=== PATIENT | male | born 1955 | race Caucasian/White ===

== ENCOUNTER 2018-06-13 12:11 | Outpatient (CLI) | payer OTHER ==
--- NOTE | 2018-06-13 14:06 | ULT ---
CAROTID DUPLEX ULTRASOUND INCLUDING COLOR AND SPECTRAL DOPPLER IMAGING: HISTORY: A 63-year-old male with a history of carotid bruit. FINDINGS: There is fairly extensive scattered plaque in the distal CCA and proximal ICAs bilaterally. PSV right ICA 393 cm/s. EDV 66 cm/s. ICA/CCA ratio 3.8. PSV left ICA 128 cm/s. EDV 41 cm/s. ICA/CCA ratio 1.7. IMPRESSION: 1. Severe, greater than 70% stenosis of the right internal carotid artery. 2. Moderate 50-59% stenosis of the left internal carotid artery. Antegrade vertebral flow. 3. Extensive arteriovascular plaque, evidence for carotid artery vascular disease. 4. Consider followup CT angiogram for further assessment. POS: DARIAN
== END 2018-06-13 12:12 | disposition home or self-care (01) ==
LOC: BICULT 12:11
PROVIDERS: ATTEND Specialist
DX: R09.89 Other specified symptoms and signs involving the circulatory and respiratory systems (principal); I65.23 Occlusion and stenosis of bilateral carotid arteries
CPT/HCPCS: 93880

== ENCOUNTER 2018-06-29 08:56 | Outpatient (CLI) | payer OTHER ==
[2018-06-29] MEDS ORDERED: ISOVUE-370 76%-LOCM 1 ML ONE (10:36)
--- NOTE | 2018-06-29 19:36 | CT ---
CT ANGIO NECK WITH CONTRAST: INDICATIONS: Carotid stenosis. Recent carotid Doppler study, 06/13/2018, revealed significant stenosis in the rig ht internal carotid artery. There was also evidence of stenosis in the left internal carotid artery. TECHNIQUE: Multiple axial tomograms were obtained through the neck with IV enhancement, following angio protocol , with multiplanar reconstruction and 3D post processing. FINDINGS: There is a common origin of the innominate artery in the left common carotid, at the arch. No stenos is at the arch. The left common carotid is patent with mild atherosclerotic change. There is atherosclerotic change with calcification in the left bulb and left proximal ICA; however, t here is no evidence of significant stenosis. The left ICA is tortuous and this tortuosity may explai n the high velocities recorded on the Doppler study. The right common carotid artery shows mild atherosclerotic change but no stenosis. There is calcified plaque at the right bulb and the proximal right ICA. There is a focus of high-gra de stenosis in the proximal right ICA, just beyond its origin. This degree of stenosis here is estim ated at 80% to 90% in diameter by NASCET criteria. The right ICA above this focal stenosis is tortuous but patent. The vertebral arteries are patent and symmetric. The soft tissues show an asymmetrically atrophied right submandibular gland, of uncertain significanc e. Recommend clinical correlation. IMPRESSION: High-grade stenosis in the proximal right internal carotid artery, as noted above. POS: DARIAN
== END 2018-06-29 08:57 | disposition home or self-care (01) ==
LOC: BICCT 08:56
PROVIDERS: ATTEND Specialist
DX: I65.21 Occlusion and stenosis of right carotid artery (principal)
CPT/HCPCS: 70498

== ENCOUNTER 2018-08-10 07:59 | Outpatient (CLI) | payer OTHER ==
[2018-08-10 08:40] LABS: #Eosinphils 0.2 thou/uL (0.0-0.7); #Lymphocytes 1.6 thou/uL (1.20-3.40); #Monocytes 0.7 thou/uL (0.11-0.59); #Neutrophils 6.1 thou/uL (1.40-6.50); %Basophils 0.3 % (0.0-1.0); %Eosinophils 2.3 % (0.0-10.0); %Lymphocytes 18.4 % (21.0-51.0); %Monocytes 7.6 % (0.0-10.0); %Neutrophils 71.4 % (42.0-75.0); Hemoglobin 15.2 g/dL (14.0-18.0); Mean Corpuscular HGB CONC 34.3 g/dL (32.0-36.0); Mean Corpuscular Hemoglobin 32.8 pg (27.0-31.0); Mean Corpuscular Volume 95.7 fL (78.0-98.0); Mean Platelet Volume 7.7 fL (7.4-10.4); Platelet Count 153 thou/uL (130-400); RBC Distribution Width 13.3 % (11.5-14.5); Red Blood Cell (RBC) Count 4.62 mill/uL (4.70-6.10); White Blood Cell (WBC) Count 8.5 thou/uL (4.8-10.8)
[2018-08-10 08:57] LABS: ALT (SGPT) 11 U/L (8-55); AST (SGOT) 15 U/L (5-34); Albumin 3.7 g/dL (3.4-4.8); Alkaline Phosphatase 98 U/L (40-150); Anion Gap 11 mmol/L (10-20); BUN (Urea Nitrogen) 13 mg/dL (8.4-25.7); Bilirubin, Direct 0.6 mg/dL (0.1-0.3); Bilirubin, Total 1.2 mg/dL (0.2-1.2); Calc. Creatinine Clearance 0 mL/min (70-130); Calcium 9.2 mg/dL (7.8-10.44); Carbon Dioxide 27 mmol/L (23-31); Cardiac Risk 2.5 (Less than 4.5); Chloride 106 mmol/L (98-107); Cholesterol 107 mg/dl (< 200 Desired); Estimated GFR-MDRD 74; Globulin 3.3 g/dL (2.4-3.5); Glucose 141 mg/dL (80-115); HDL Cholesterol 42 mg/dL (>60 Neg Risk); LDL Cholesterol, Calculated 54 mg/dL; Potassium 3.4 mmol/L (3.5-5.1); Sodium 141 mmol/L (136-145); Triglycerides 54 mg/dL (Less than 150)
== END 2018-08-10 08:00 | disposition home or self-care (01) ==
LOC: LABBT 07:59
PROVIDERS: ATTEND Internal Medicine Cardiovascular Disease
DX: Z01.812 Encounter for preprocedural laboratory examination (principal)
CPT/HCPCS: 80053; 80061; 80076; 85025

== ENCOUNTER 2018-08-16 06:01 | Observation (INO) | payer OTHER ==
[2018-08-16] MEDS ORDERED: Heparin 10,000 UNITS/1 ML VIAL ONE (06:31)
[2018-08-16] MEDS ORDERED: Midazolam HCl 2 mg/2 ml Vial ONE (06:59)
[2018-08-16] MEDS ORDERED: Fentanyl 100 MCG/2 ML VIAL ONE (07:00)
[2018-08-16] MEDS ORDERED: Clopidogrel Bisulfate 300 MG TAB ONE (07:37)
[2018-08-16] MEDS ORDERED: Bivalirudin 250 MG VIAL ONE (07:37)
[2018-08-16] MEDS ORDERED: Nitroglycerin 100MG/250ML BOT 250 ML ONE (07:38)
[2018-08-16] MEDS ORDERED: Sodium Chloride 0.9% 1,000 ML IV SCH (08:15)
[2018-08-16] MEDS ORDERED: Doxycycline 100 MG CAP PO SCH (09:00)
[2018-08-16] MEDS ORDERED: Iopamidol 370 76% 100 ML VIAL ONE (09:36)
[2018-08-16] MEDS ORDERED: Iopamidol 370 76% 50 ML VIAL FS ONE (09:36)
[2018-08-16] MEDS ORDERED: Albuterol Sulfate 1.25 MG/3 ML NEB ONE (09:42)
[2018-08-16] MEDS ORDERED: Doxycycline Monohydrate 25 MG/5 ML PO SCH (10:00)
[2018-08-16] MEDS: Allopurinol 100 MG TAB PO SCH (10:27)
[2018-08-16] MEDS: Clopidogrel Bisulfate 75 MG TAB PO SCH (10:27)
[2018-08-16] MEDS: Digoxin 0.25 MG TAB PO SCH (10:28)
[2018-08-16] MEDS: Furosemide 20 MG TAB PO SCH ×2 (10:30→18:25)
[2018-08-16] MEDS: hydrALAZINE 25 MG TAB PO SCH ×2 (10:30→20:15)
[2018-08-16] MEDS: Lisinopril 20 MG TAB PO SCH ×2 (10:31→20:15)
[2018-08-16] MEDS ORDERED: Sodium Chloride 0.9% 10 ML ONE (11:40)
--- NOTE | 2018-08-16 14:15 | CCL ---
CARDIAC CATHETERIZATION REPORT: Date: 08/16/18 PROCEDURE: Left heart catheterization, selective arteriography, left ventriculography, bypass graft angiography, VAIL injection, intracoronary nitroglycerin, and bare metal stent placement in the second obtuse marginal distal to the graft insertion. INDICATION: Abnormal nuclear scan for preoperative evaluation. DESCRIPTION OF PROCEDURE: The patient was brought to the cardiac photographic laboratory technician and the right groin was prepped and draped in the usual fashion. 1% lidocaine was infiltrated. A 6 Burkinan sheath was placed into the right femoral artery and heparin 3,000 units given. A 6 Burkinan angulated pigtail was inserted and pressures were obtained. Left ventriculogram was performed using 30 mL of contrast at 12 mL/s in a MCKOY 30 degree projection. Pressures were obtained and the pigtail was removed over an exchange wire for a 6 Burkinan Nayeli left-4. Left coronary artery arteriography was performed and this was removed over an exchange wire for a Nayeli right-4 catheter. Right coronary arteriography and bypass graft angiography, as well as VAIL injection was performed. The right-4 diagnostic catheter was then removed over a wire and a 6 Burkinan right-4 guide catheter was inserted. Floppy Choice wire was advanced into the obtuse marginal graft distal to the lesion in the [place] vessel. Rebel 2.5 x 12 mm stent was then inserted; however, the guide would not provide adequate backup to allow opacification of the graft to document the location of the stent. The balloon, wire, and guide catheter were removed. The guide catheter was removed over an exchange wire for a 6 [place]kinan Amplatz left-1 guide catheter. The floppy Choice wire was then reinserted into the obtuse marginal graft distal to the lesion. Rebel 2.5 x 12 mm stent was then positioned and deployed. Intracoronary nitroglycerin 200 mcg was given earlier in the case. Also during the case, Angiomax bolus and drip were given, and Plavix 600 mg PO. There was excellent result and the guide catheter and balloon wire were removed. The sheath was sutured in place. The patient was transferred to the PCU. RESULTS: PRESSURES: Aorta 141/65, mean of 95 Left Ventricle 136/12 LEFT VENTRICULOGRAM: There was normal left ventricular contractility with ejection fraction of 50-55% . There was moderate mitral regurgitation. CORONARY ARTERIOGRAPHY: 1. The left main was normal. 2. The LAD had a 50% proximal stenosis and a 50% mid stenosis. 3. The circumflex was totally occluded in its mid portion, which was the site of previous stent placement in 2010. The superior branch of the second obtuse marginal filled retrograde from the left. 4. The ramus had an 80% stenosis. 5. The right coronary artery was diffusely diseased with 70% proximal stenosis , 80%, and 99% mid stenosis, and total occlusion distally. BYPASS GRAFTS: 1. The VAIL to the LAD was patent. 2. The second obtuse marginal graft was patent. There was an 80% lesion in [place] vessel distal to the graft insertion. 3. The ramus graft was patent. This was piggybacked on to the obtuse marginal graft. 4. The right posterior descending graft was patent. INTERVENTION RESULTS: The initial lesion in the second obtuse marginal distal to the graft insertion was 80%; final lesion was 0%. IMPRESSION: 1. Three vessel coronary artery disease. 2. Four of four bypass grafts patent. 3. Normal left ventricular function. 4. Moderate mitral regurgitation. 5. Successful bare metal stent in second obtuse marginal distal to the graft insertion. [facility]
[2018-08-16 15:27] VITALS: BMI 32.8
[2018-08-16] MEDS: Carvedilol 25 MG TAB PO SCH (18:20)
[2018-08-16] MEDS ORDERED: Atorvastatin Calcium 40 MG TAB PO SCH (21:00)
[2018-08-17 05:42] LABS: #Eosinphils 0.2 thou/uL (0.0-0.7); #Lymphocytes 1.7 thou/uL (1.20-3.40); #Monocytes 0.8 thou/uL (0.11-0.59); #Neutrophils 5.2 thou/uL (1.40-6.50); %Basophils 0.3 % (0.0-1.0); %Eosinophils 2.4 % (0.0-10.0); %Lymphocytes 21.5 % (21.0-51.0); %Monocytes 9.8 % (0.0-10.0); Hemoglobin 13.5 g/dL (14.0-18.0); Mean Corpuscular HGB CONC 33.8 g/dL (32.0-36.0); Mean Corpuscular Hemoglobin 32.5 pg (27.0-31.0); Mean Corpuscular Volume 96.3 fL (78.0-98.0); Mean Platelet Volume 8.1 fL (7.4-10.4); Platelet Count 125 thou/uL (130-400); RBC Distribution Width 13.6 % (11.5-14.5); Red Blood Cell (RBC) Count 4.15 mill/uL (4.70-6.10); White Blood Cell (WBC) Count 7.8 thou/uL (4.8-10.8)
[2018-08-17 05:59] LABS: Digoxin 0.46 ng/mL (0.8-2.0)
[2018-08-17 06:00] LABS: ALT (SGPT) 11 U/L (8-55); AST (SGOT) 17 U/L (5-34); Albumin 3.5 g/dL (3.4-4.8); Alkaline Phosphatase 84 U/L (40-150); Anion Gap 12 mmol/L (10-20); BUN (Urea Nitrogen) 15 mg/dL (8.4-25.7); Bilirubin, Total 1.2 mg/dL (0.2-1.2); Calc. Creatinine Clearance 128 mL/min (70-130); Calcium 8.9 mg/dL (7.8-10.44); Carbon Dioxide 23 mmol/L (23-31); Chloride 105 mmol/L (98-107); Estimated GFR-MDRD 79; Globulin 2.9 g/dL (2.4-3.5); Glucose 154 mg/dL (80-115); Potassium 3.5 mmol/L (3.5-5.1); Protein, Total 6.4 g/dL (5.8-8.1); Sodium 136 mmol/L (136-145)
[2018-08-17] MEDS: Allopurinol 100 MG TAB PO SCH (07:57)
[2018-08-17] MEDS: Clopidogrel Bisulfate 75 MG TAB PO SCH (07:59)
[2018-08-17] MEDS: Digoxin 0.25 MG TAB PO SCH (07:59)
[2018-08-17] MEDS: Furosemide 20 MG TAB PO SCH (07:59)
[2018-08-17] MEDS: hydrALAZINE 25 MG TAB PO SCH (08:00)
[2018-08-17] MEDS: Carvedilol 25 MG TAB PO SCH (08:00)
[2018-08-17] MEDS: Lisinopril 20 MG TAB PO SCH (08:00)
[2018-08-17] MEDS ORDERED: Potassium Chloride 10 MEQ TAB PO SCH (08:00)
[2018-08-17] MEDS ORDERED: Doxycycline Monohydrate 25 MG/5 ML PO SCH (09:00)
[2018-08-17 15:36] VITALS: BP 150/82; TEMP 97.5
--- NOTE | 2018-08-18 04:12 | DIS ---
DATE OF ADMISSION: 08/16/2018 DATE OF DISCHARGE: 08/17/2018 DISCHARGE DIAGNOSES: 1. Proximal to distal inferior and proximal lateral wall ischemia on cardiac PET scan. 2. Placement of bare metal stent in the obtuse marginal distal to the graft insertion. 3. Status post coronary artery bypass graft with four of four grafts patent at this time. 4. Moderate mitral regurgitation. 5. Severe right internal carotid artery stenosis, for carotid endarterectomy in the near future. 6. Chronic atrial fibrillation. 7. History of ETOH abuse. 8. Hypertension. 9. Hypercholesterolemia under good control. 10. Chronic obstructive pulmonary disease. 11. Smoker of 15 cigarettes per day. 12. History of CVA. DISCHARGE MEDICATIONS: 1. Plavix 75 mg q.a.m. x1 month and then discontinue. 2. Allopurinol 100 q.a.m. 3. Aspirin 81 q.a.m. 4. Atorvastatin 40 mg q.a.m. 5. Carvedilol 25 mg b.i.d. 6. Digoxin 0.375 mg daily. 7. Doxycycline 40 mg q.a.m. 8. Furosemide 40 mg b.i.d. 9. Hydralazine 50 mg b.i.d. 10. Lisinopril 20 mg b.i.d. 11. KCl 10 mEq q.a.m. 12. He will resume Xarelto on the day after discharge. DISCHARGE DISPOSITION: The patient will be seen in 6 months with fast lipid profile and comprehensive metabolic panel. He will contact Dr. Ramos regarding timing of his carotid endarterectomy. HOSPITAL COURSE: Mr. Mari has been found to have severe right internal carotid stenosis and was sent for preoperative evaluation. Over the last several months , he has had vague chest discomfort. He underwent cardiac PET scan, which revealed proximal distal inferior and proximal lateral wall ischemia. He underwent cardiac catheterization. This revealed normal left ventricular function with ejection fraction of 50% to 55% and moderate mitral regurgitation. Coronary arteries revealed 50% proximal and 50% mid LAD, total occlusion of the mid circumflex. This was the area of previous stenting during a STEMI. The superior branch of the 2nd obtuse marginal filled retrograde from the left. The ramus had an 80% stenosis. The right coronary artery had a 70% proximal, 80% and 99% mid, and total distal occlusion. Bypass graft revealed patent VAIL to the LAD. The obtuse marginal graft was patent with an 80% lesion just distal to the insertion in the [place] vessel. The ramus graft was patent. It was piggybacked onto the obtuse marginal graft. Right posterior descending graft was patent. He underwent placement of Rebel 2.5 x 12 mm stent in the obtuse marginal distal to graft insertion with reduction from 80% to 0%. He was observed overnight and discharged. He will follow up with Dr. Ramos. It was felt that Mr. Mari is an acceptable cardiac risk for general anesthesia and to proceed with vascular surgery. Job ID: [id number] [facility]
== END 2018-08-17 16:50 | disposition home or self-care (01) ==
LOC: CCL 06:01 → 2SW 08:14
PROVIDERS: ADMIT Internal Medicine Cardiovascular Disease; ATTEND Internal Medicine Cardiovascular Disease
PROC: 02703DZ Dilation of Coronary Artery, One Artery with Intraluminal Device, Percutaneous Approach (ICD-10-PCS; principal; 2018-08-17)
PROC: 4A023N7 Measurement of Cardiac Sampling and Pressure, Left Heart, Percutaneous Approach (ICD-10-PCS; 2018-08-17)
PROC: B2121ZZ Fluoroscopy of Single Coronary Artery Bypass Graft using Low Osmolar Contrast (ICD-10-PCS; 2018-08-17)
PROC: B2151ZZ Fluoroscopy of Left Heart using Low Osmolar Contrast (ICD-10-PCS; 2018-08-17)
DX: I25.10 Atherosclerotic heart disease of native coronary artery without angina pectoris (principal); I25.82 Chronic total occlusion of coronary artery; I34.0 Nonrheumatic mitral (valve) insufficiency; I65.21 Occlusion and stenosis of right carotid artery; I48.2 Chronic atrial fibrillation; I10 Essential (primary) hypertension; E78.00 Pure hypercholesterolemia, unspecified; J44.9 Chronic obstructive pulmonary disease, unspecified; F17.210 Nicotine dependence, cigarettes, uncomplicated; Z95.1 Presence of aortocoronary bypass graft; Z86.73 Personal history of transient ischemic attack (TIA), and cerebral infarction without residual deficits; Z79.02 Long term (current) use of antithrombotics/antiplatelets; Z79.82 Long term (current) use of aspirin; Z79.899 Other long term (current) drug therapy
CPT/HCPCS: 36415; 80053; 80162; 85025; 85347; 92928; 93005; 93010; 93459; 93798; 94640; 99152; 99153; C1769; C1876; C1887; G0378; J0583; J1644; J2250; J3010; J7620

== ENCOUNTER 2019-01-23 00:54 | Outpatient (CLI) | payer MEDICARE, OTHER ==
[2019-01-23 14:32] LABS: Hemoglobin 14.4 g/dL (14.0-18.0); Mean Corpuscular HGB CONC 35.4 g/dL (32.0-36.0); Mean Corpuscular Hemoglobin 33.9 pg (27.0-31.0); Mean Corpuscular Volume 95.9 fL (78.0-98.0); Mean Platelet Volume 8.4 fL (7.4-10.4); Platelet Count 130 thou/uL (130-400); RBC Distribution Width 13.5 % (11.5-14.5); Red Blood Cell (RBC) Count 4.24 mill/uL (4.70-6.10); White Blood Cell (WBC) Count 8.7 thou/uL (4.8-10.8)
[2019-01-23 14:53] LABS: Anion Gap 12 mmol/L (10-20); BUN (Urea Nitrogen) 14 mg/dL (8.4-25.7); Calc. Creatinine Clearance 0 mL/min (70-130); Carbon Dioxide 26 mmol/L (23-31); Chloride 107 mmol/L (98-107); Estimated GFR-MDRD 88; Glucose 114 mg/dL (80-115); Potassium 3.6 mmol/L (3.5-5.1); Sodium 141 mmol/L (136-145)
== END 2019-01-23 00:55 | disposition home or self-care (01) ==
LOC: LABBT 00:54
PROVIDERS: ATTEND Thoracic Surgery (Cardiothoracic Vascular Surgery)
DX: Z01.812 Encounter for preprocedural laboratory examination (principal); I65.29 Occlusion and stenosis of unspecified carotid artery
CPT/HCPCS: 80048; 85027

== ENCOUNTER 2019-01-23 13:30 | Inpatient (IN) | payer MEDICARE, OTHER ==
[2019-01-24] MEDS ORDERED: Bupivacaine/Epinephrine 0.25% 30 ML VIAL ONE (10:39)
[2019-01-24] MEDS ORDERED: Protamine Sulfate 50 MG/5 ML VIAL ONE (10:39)
[2019-01-24] MEDS ORDERED: Heparin 5,000 UNITS/ML VIAL ONE (10:39)
[2019-01-24] MEDS ORDERED: Fentanyl 100 MCG/2 ML VIAL ONE (10:41)
[2019-01-24] MEDS ORDERED: Midazolam HCl 2 mg/2 ml Vial ONE (10:41)
[2019-01-24] MEDS ORDERED: Ondansetron HCl/PF 4 MG/2 ML Vial IVP PRN (11:37)
[2019-01-24] MEDS ORDERED: Ondansetron PF 4 MG/2 ML Vial IVP PRN (12:51)
[2019-01-24] MEDS ORDERED: Nitroglycerin 50 MG/250 ML BOT 250 ML IVPB PRN (12:51)
[2019-01-24] MEDS ORDERED: Fentanyl 100 MCG/2 ML VIAL SLOW IVP PRN ×2 (12:51)
[2019-01-24] MEDS ORDERED: HYDROcodone/Acetaminophen 5/325 mg Tablet PO PRN ×2 (12:51)
[2019-01-24] MEDS ORDERED: Sodium Chloride 0.9% 1,000 ML IV SCH (12:51)
[2019-01-24] MEDS ORDERED: Acetaminophen 325 MG TAB PO PRN (12:51)
[2019-01-24] MEDS ORDERED: Promethazine HCl 25 MG/ML VIAL IM PRN (12:51)
[2019-01-24] MEDS ORDERED: Phenylephrine 10 MG/NS 250 ML 250 ML IVPB PRN (12:51)
[2019-01-24 13:55] VITALS: BMI 32.8
[2019-01-24] MEDS: CEFAZOLIN 2 GM in Premix Bag 1 BAG IVPB SCH (17:11)
[2019-01-24] MEDS: hydrALAZINE 20 MG/ML VIAL SLOW IVP PRN ×2 (18:10→21:11)
[2019-01-24] MEDS: hydrALAZINE 25 MG TAB PO SCH (19:50)
[2019-01-24] MEDS: Furosemide 40 MG TAB PO SCH (19:51)
[2019-01-24] MEDS: Lisinopril 20 MG TAB PO SCH (19:51)
[2019-01-24] MEDS: Carvedilol 25 MG TAB PO SCH (19:51)
[2019-01-25] MEDS: hydrALAZINE 20 MG/ML VIAL SLOW IVP PRN (00:31)
[2019-01-25] MEDS: CEFAZOLIN 2 GM in Premix Bag 1 BAG IVPB SCH ×2 (02:00→08:33)
[2019-01-25 07:04] VITALS: TEMP 98.7
--- NOTE | 2019-01-25 08:24 | OP ---
DATE OF PROCEDURE: 01/24/2019 PREOPERATIVE DIAGNOSIS: Right carotid stenosis with tortuosity. PROCEDURE PERFORMED: Right carotid endarterectomy with internal carotid artery shortening and bovine pericardial patch. ANESTHESIA: General. ESTIMATED BLOOD LOSS: 100. DESCRIPTION OF PROCEDURE: After adequate anesthesia had been obtained, ultrasound was used to guide the incision site. Common, internal, and external carotid arteries were isolated. The common carotid artery was quite large. The distal internal carotid artery had a partial loop as anticipated based on CT scan. To prevent postoperative kinking, it was determined that this would be shortened. After heparinization, clamps were applied. Arteriotomy performed through a very tight stenosis. Initially, a 12-Persian shunt was attempted to be passed, but had difficulty negotiating the sharp curve. A 10-Persian shunt was then placed. There was good back bleeding from the shunt. Following this, endarterectomy was performed. Following which, the internal carotid artery was shortened about 1.5 cm with an imbricating layer of Prolene running suture along the sides and back wall. After this was completed, the area was thoroughly irrigated and bovine patch used to close the arteriotomy. Prior to completing the suture line, shunt was removed, vessels back flushed and flow was then restored up the external and then internal carotid artery. Protamine was given to partially reverse the heparin and after obtaining good hemostasis, the wound was irrigated and closed in layers. The patient is to be taken to the ICU in guarded condition. Job ID: [id number]
[2019-01-25] MEDS: hydrALAZINE 25 MG TAB PO SCH (08:33)
[2019-01-25] MEDS: Lisinopril 20 MG TAB PO SCH (08:33)
[2019-01-25] MEDS: Furosemide 40 MG TAB PO SCH (08:34)
[2019-01-25] MEDS: Carvedilol 25 MG TAB PO SCH (08:35)
[2019-01-25 08:36] VITALS: BP 143/73
[2019-01-25] MEDS ORDERED: Potassium Chloride 10 MEQ TAB PO SCH (09:00)
[2019-01-25] MEDS ORDERED: Aspirin Chewable 81 MG TAB PO SCH (09:00)
[2019-01-25] MEDS ORDERED: Atorvastatin Calcium 40 MG TAB PO SCH (21:00)
--- NOTE | 2019-01-26 04:12 | DIS ---
DATE OF ADMISSION: 01/24/2019 DATE OF DISCHARGE: 01/25/2019 HOSPITAL COURSE: The patient underwent an uneventful right carotid endarterectomy with internal carotid artery shortening. His postoperative course was unremarkable except for some mild bradycardia related to his atrial fibrillation and beta blockers. He will resume his home medicines with his Xarelto to be restarted tomorrow. Discharge and followup instructions have been given and he will get a prescription for tramadol. Job ID: [id number]
--- NOTE | 2019-01-26 13:50 | EKG ---
Test Reason : STAT Blood Pressure : / mmHG Vent. Rate : 052 BPM Atrial Rate : 340 BPM P-R Int : 000 ms QRS Dur : 106 ms QT Int : 418 ms P-R-T Axes : 000 044 220 degrees QTc Int : 388 ms Atrial fibrillation with slow ventricular response Abnormal ECG When compared with ECG of 17-AUG-2018 06:43, T wave inversion now evident in Inferior leads T wave inversion now evident in Lateral leads Confirmed by DR. Jess ANGELO ([id number]) on 01/26/2019 1:50:35 PM Referred By: DARIO Confirmed By:DR. Jess ANGELO
== END 2019-01-25 09:27 | disposition home or self-care (01) | DRG 39 ==
LOC: SURG A 01-24 09:26 → CCU 01-24 14:34
PROVIDERS: ADMIT Thoracic Surgery (Cardiothoracic Vascular Surgery); ATTEND Thoracic Surgery (Cardiothoracic Vascular Surgery)
PROC: 03CK0ZZ Extirpation of Matter from Right Internal Carotid Artery, Open Approach (ICD-10-PCS; principal; 2019-01-24)
PROC: 03UK0KZ Supplement Right Internal Carotid Artery with Nonautologous Tissue Substitute, Open Approach (ICD-10-PCS; 2019-01-24)
DX: I65.21 Occlusion and stenosis of right carotid artery (principal); Z95.5 Presence of coronary angioplasty implant and graft; Z95.1 Presence of aortocoronary bypass graft; Z90.89 Acquired absence of other organs
CPT/HCPCS: 80048; 85027; 93005; 93010; J0360; J0690; J1642; J1644; J2250; J2720; J3010

== ENCOUNTER 2021-09-15 13:36 | Outpatient (CLI) | payer MEDICARE | END 2021-09-15 13:37 | disposition home or self-care (01) | LOC: BICRAD 13:36 | PROVIDERS: ATTEND Nurse Practitioner Family | DX: R06.02 Shortness of breath (principal); I51.7 Cardiomegaly | CPT/HCPCS: 71046 ==

== ENCOUNTER 2022-02-08 10:10 | Outpatient (CLI) | payer MEDICARE, OTHER ==
[2022-02-08 11:38] LABS: #Basophils 0.1 10x3/uL (0.0-0.2); #Eosinphils 0.2 10x3/uL (0.0-0.5); #Monocytes 0.8 10x3/uL (0.0-1.1); #Neutrophils 5.9 10x3/uL (1.5-8.4); %Basophils 1.1 % (0.0-2.0); %Eosinophils 1.8 % (0.0-6.0); %Lymphocytes 17.8 % (18.0-47.0); %Monocytes 9.4 % (0.0-10.0); %Neutrophils 69.7 % (40.0-75.0); Hemoglobin 13.2 g/dL (13.5-17.5); Mean Corpuscular HGB CONC 33.2 g/dL (32.0-36.0); Mean Corpuscular Hemoglobin 31.8 pg (27.0-33.0); Mean Corpuscular Volume 95.7 fl (81.2-95.1); Mean Platelet Volume 9.9 fl (7.4-10.4); Platelet Count 161 10x3/uL (150-450); RBC Distribution Width 14.8 % (11.5-14.5); Red Blood Cell (RBC) Count 4.15 10x6/uL (4.32-5.72); White Blood Cell (WBC) Count 8.5 10x3/uL (3.5-10.5)
[2022-02-08 12:07] LABS: ALT (SGPT) 12 U/L (8-55); AST (SGOT) 16 U/L (5-34); Albumin 3.9 g/dL (3.4-4.8); Alkaline Phosphatase 92 U/L (40-110); Anion Gap 15 mmol/L (10-20); BUN (Urea Nitrogen) 20 mg/dL (8.4-25.7); Bilirubin, Total 1.5 mg/dL (0.2-1.2); Calc. Creatinine Clearance 0 mL/min (70-130); Calcium 9.4 mg/dL (7.8-10.44); Carbon Dioxide 26 mmol/L (23-31); Chloride 106 mmol/L (98-107); Globulin 3.1 g/dL (2.4-3.5); Glucose 121 mg/dL (80-115); Potassium 4.2 mmol/L (3.5-5.1); Sodium 143 mmol/L (136-145)
== END 2022-02-08 10:11 | disposition home or self-care (01) ==
LOC: LABBT 10:10
PROVIDERS: ATTEND Surgery
DX: Z01.818 Encounter for other preprocedural examination (principal); L73.2 Hidradenitis suppurativa; Z20.822 Contact with and (suspected) exposure to COVID-19
CPT/HCPCS: 80053; 85025; 93005; U0003; U0005; 93010

== ENCOUNTER 2022-02-11 09:13 | Day surgery (SDC) | payer MEDICARE ==
[2022-02-09 12:51] VITALS: BMI 32.7
[2022-02-11] MEDS ORDERED: Lidocaine 1% w/Epinephrine 1:100K 20 ML VIAL ONE (10:51)
[2022-02-11] MEDS ORDERED: Bupivacaine 0.25% HCL 30 ML VIAL ONE (10:51)
[2022-02-11] MEDS ORDERED: Sodium Chloride 0.9% 100 ML ONE (11:01)
[2022-02-11] MEDS ORDERED: CEFAZOLIN 2 GM VIAL ONE (11:01)
[2022-02-11] MEDS ORDERED: fentaNYL Citrate/PF 100 MCG/2 ML SYRINGE ONE (11:06)
[2022-02-11] MEDS ORDERED: Famotidine/PF 20 mg/2ml Vial ONE (11:06)
[2022-02-11] MEDS ORDERED: Lidocaine 1% PF 5 ML VIAL ONE (11:13)
[2022-02-11] MEDS ORDERED: Metoclopramide HCl 10 MG/2 ML VIAL ONE (11:13)
[2022-02-11] MEDS ORDERED: Glycopyrrolate 0.2 MG/ML 5 ML SYRINGE ONE (11:13)
[2022-02-11] MEDS ORDERED: PHENYLEPHRINE-NS 100 MCG/ML 10 ML SYRINGE ONE (11:13)
[2022-02-11] MEDS ORDERED: PROPOFOL 200 MG/20 ML VIAL ONE (11:13)
[2022-02-11] MEDS ORDERED: Ondansetron PF 4 MG/2 ML Vial ONE (11:13)
== END 2022-02-11 14:05 | disposition home or self-care (01) ==
LOC: SDC 09:13
PROVIDERS: ATTEND Surgery
PROC: 0JBB0ZZ Excision of Perineum Subcutaneous Tissue and Fascia, Open Approach (ICD-10-PCS; principal; 2022-02-11)
DX: L73.2 Hidradenitis suppurativa (principal); L72.0 Epidermal cyst; I25.10 Atherosclerotic heart disease of native coronary artery without angina pectoris; Z86.73 Personal history of transient ischemic attack (TIA), and cerebral infarction without residual deficits; Z79.01 Long term (current) use of anticoagulants; Z79.82 Long term (current) use of aspirin; Z79.899 Other long term (current) drug therapy; Z95.1 Presence of aortocoronary bypass graft
CPT/HCPCS: 87070; 87205; 88304; J2405; J2704; J2765; J3490; S0020; S0028

== ENCOUNTER 2022-08-04 10:50 | Outpatient (CLI) | payer MEDICARE | END 2022-08-04 10:51 | disposition home or self-care (01) | LOC: BICCT 10:50 | PROVIDERS: ATTEND Thoracic Surgery (Cardiothoracic Vascular Surgery) | DX: M17.11 Unilateral primary osteoarthritis, right knee (principal); I70.0 Atherosclerosis of aorta; I77.4 Celiac artery compression syndrome; I70.1 Atherosclerosis of renal artery; I73.9 Peripheral vascular disease, unspecified; I77.811 Abdominal aortic ectasia | CPT/HCPCS: 75635; 82565 ==

== ENCOUNTER 2022-10-12 05:12 | Emergency (ER) | payer MEDICARE ==
[~2022-10-12 05:12] MED LIST: Oxymetazoline HCl 0.05% (30 ML BOT) ONE
[2022-10-12 06:57] LABS: #Eosinphils 0.1 thou/uL (0.0-0.7); #Lymphocytes 1.7 thou/uL (1.20-3.40); #Monocytes 0.8 thou/uL (0.11-0.59); #Neutrophils 7.1 thou/uL (1.40-6.50); %Basophils 0.4 % (0.0-1.0); %Eosinophils 1.5 % (0.0-10.0); %Lymphocytes 17.1 % (21.0-51.0); %Neutrophils 72.9 % (42.0-75.0); Hemoglobin 13.3 g/dL (14.0-18.0); Mean Corpuscular HGB CONC 33.2 g/dL (32.0-36.0); Mean Corpuscular Hemoglobin 32.1 pg (27.0-31.0); Mean Corpuscular Volume 96.5 fl (78.0-98.0); Mean Platelet Volume 8.2 fL (7.4-10.4); Platelet Count 172 10x3/uL (130-400); RBC Distribution Width 14.2 % (11.5-14.5); Red Blood Cell (RBC) Count 4.14 mill/uL (4.70-6.10); White Blood Cell (WBC) Count 9.8 10x3/uL (4.8-10.8)
[2022-10-12 07:19] LABS: ALT (SGPT) 14 U/L (8-55); AST (SGOT) 16 U/L (5-34); Albumin 3.7 g/dL (3.4-4.8); Alkaline Phosphatase 81 U/L (40-110); Anion Gap 14 mmol/L (10-20); BUN (Urea Nitrogen) 31 mg/dL (8.4-25.7); Bilirubin, Total 1.2 mg/dL (0.2-1.2); Calc. Creatinine Clearance 0 mL/min (70-130); Carbon Dioxide 24 mmol/L (23-31); Chloride 105 mmol/L (98-107); Estimated GFR 44; Globulin 3.4 g/dL (2.4-3.5); Glucose 159 mg/dL (80-115); Potassium 4.1 mmol/L (3.5-5.1); Protein, Total 7.1 g/dL (5.8-8.1); Sodium 139 mmol/L (136-145)
[2022-10-12 08:55] LABS: #Basophils 0.1 thou/uL (0.0-0.2); #Eosinphils 0.1 thou/uL (0.0-0.7); #Lymphocytes 1.7 thou/uL (1.20-3.40); #Monocytes 0.9 thou/uL (0.11-0.59); #Neutrophils 6.6 thou/uL (1.40-6.50); %Basophils 0.6 % (0.0-1.0); %Eosinophils 1.1 % (0.0-10.0); %Lymphocytes 18.1 % (21.0-51.0); %Monocytes 9.3 % (0.0-10.0); %Neutrophils 70.8 % (42.0-75.0); Hemoglobin 12.7 g/dL (14.0-18.0); Mean Corpuscular HGB CONC 33.5 g/dL (32.0-36.0); Mean Corpuscular Hemoglobin 32.6 pg (27.0-31.0); Mean Corpuscular Volume 97.3 fl (78.0-98.0); Mean Platelet Volume 7.9 fL (7.4-10.4); Platelet Count 165 10x3/uL (130-400); RBC Distribution Width 14.2 % (11.5-14.5); White Blood Cell (WBC) Count 9.3 10x3/uL (4.8-10.8)
[2022-10-12 09:13] LABS: Digoxin 0.81 ng/mL (0.8-2.0)
[2022-10-12] MEDS ORDERED: Acetaminophen 500 MG TAB ONE (09:32)
== END 2022-10-12 09:52 | disposition home or self-care (01) ==
LOC: ERS 05:12
DX: R04.0 Epistaxis (principal); N17.9 Acute kidney failure, unspecified; I10 Essential (primary) hypertension; J44.9 Chronic obstructive pulmonary disease, unspecified; Z79.82 Long term (current) use of aspirin; Z79.899 Other long term (current) drug therapy
CPT/HCPCS: 70450; 80053; 80162; 85025; 86850; 86900; 86901; 96360; 96361

== ENCOUNTER 2023-08-10 14:47 | Outpatient (CLI) | payer MEDICARE | END 2023-08-10 14:48 | disposition home or self-care (01) | LOC: RAD 14:47 | PROVIDERS: ATTEND Internal Medicine Critical Care Medicine | DX: R06.00 Dyspnea, unspecified (principal); J90 Pleural effusion, not elsewhere classified; R91.8 Other nonspecific abnormal finding of lung field | CPT/HCPCS: 71046 ==